=== PATIENT | male | born 1945 | race Caucasian/White ===

== ENCOUNTER 2017-10-06 14:40 | Emergency (ER) | payer MEDICARE, BC ==
[2017-10-06] MEDS ORDERED: Sodium Chloride 0.9% 10 ML Syringe FLUSH PRN (14:45)
[2017-10-06 14:47] VITALS: BP 118/68
--- NOTE | 2017-10-06 14:49 | EDM.PDOC ---
ED HPI GENERAL MEDICAL PROBLEM - General Chief Complaint: Chest Pain Stated Complaint: [id number] CHEST PAIN Time Seen by Provider: 10/06/17 14:42 Source of Information: Reports: Patient, RN, RN Notes Reviewed History Limitations: Reports: No Limitations - History of Present Illness INITIAL COMMENTS - FREE TEXT/NARRATIVE: Pt presents to ER with c/o chest pain. He states the pain began Wednesday or Wednesday. He states he was in [place] last week Wednesday for a check of his pacemaker. Patient admits to a dull ache in the left chest that radiates to the midsternal area. Rates the pain 3/10 when present, but 0/10 at this time. Patient denies fever, chills, SOB, N/V/D, cough, recent illness. Patient denies radiation of the pain to the left arm, jaw, neck, or back. Onset: Gradual Duration: Intermittent Location: Reports: Chest Quality: Reports: Ache, Dull Severity: Mild Improves with: Reports: None Worsens with: Reports: None Associated Symptoms: Reports: No Other Symptoms - Related Data Allergies Allergy/AdvReac Type Severity Reaction Status Date / Time aspirin Allergy Nose Bleeds Verified 03/27/15 07:02 atorvastatin calcium Allergy Abdominal Verified 03/27/15 07:02 [From Lipitor] Pain dabigatran etexilate mesylate Allergy Dizziness Verified 03/27/15 07:02 [From Pradaxa] ezetimibe [From Zetia] Allergy Cannot Verified 03/27/15 07:02 Remember rivaroxaban [From Xarelto] Allergy Dizziness Verified 03/27/15 07:02 rosuvastatin calcium Allergy Headache Verified 03/27/15 07:02 [From Crestor] simvastatin Allergy Stomach Verified 03/27/15 07:02 Ache Home Meds: Home Meds Digoxin 125 mcg PO ASDIRECTED 03/31/14 [History] Fenofibrate Nanocrystallized [Tricor] 145 mg PO DAILY 03/31/14 [History] Tamsulosin [Tamsulosin 24 Hr] 1 cap PO BID 03/31/14 [History] Zolpidem [Ambien] 1 tab PO BEDTIME 03/31/14 [History] Acetaminophen [Tylenol Extra Strength] 1 tab PO Q4H PRN 06/01/14 [History] Warfarin [Coumadin] 1 tab PO DAILY 07/24/14 [History] Lutein/Minerals/Vit A,C & E [I-Liana] 1 tab PO DAILY 02/25/15 [History] Metoprolol Succinate [Toprol XL] 0.5 tab PO DAILY 02/25/15 [History] Potassium Chloride [Klor-Con M20] 1 tab PO DAILY 02/25/15 [History] Sennosides/Docusate Sodium [Senna Plus Tablet] 1 tab PO BID 02/25/15 [History] Torsemide [Demadex] 1 tab PO DAILY 02/25/15 [History] Losartan [Cozaar] 0.5 tab PO DAILY 02/26/15 [History] Past Medical History HEENT History: Reports: Cataract, Otitis Media Cardiovascular History: Reports: Afib, High Cholesterol, Hypertension, Other ( See Below) Other Cardiovascular History: DILATED CARDIOMYOPATHY, NON-ISCHEMIA, POSSIBLE TACHYCARDIA-INDUCED EF 19% 10/2014; MITRAL & TRICUSPID INSUFFICIENCY; CHRONIC ANTICOAGULATION THERAPY Respiratory History: Reports: Sleep Apnea Genitourinary History: Reports: Prostate Disorder Other Genitourinary History: CKD Neurological History: Reports: Vertigo Oncologic (Cancer) History: Reports: Non-Hodgkin's Lymphoma Other Dermatologic History: KERATOSIS ACTINIC LEFT BAHAI - Past Surgical History HEENT Surgical History: Reports: Myringotomy w Tube(s) Musculoskeletal Surgical History: Reports: Shoulder Surgery Social & Family History - Living Situation & Occupation Living situation: Reports: , with Spouse Occupation: Retired ED ROS GENERAL - Review of Systems Review Of Systems: ROS reveals no pertinent complaints other than HPI. ED EXAM, GENERAL - Physical Exam Exam: See Below Exam Limited By: No Limitations General Appearance: Alert, WD/WN, No Apparent Distress Eye Exam: Bilateral Eye: EOMI, Normal Inspection Ears: Normal External Exam, Hearing Grossly Normal Nose: Normal Inspection Throat/Mouth: Normal Inspection, Normal Voice, No Airway Compromise Head: Atraumatic, Normocephalic Neck: Normal Inspection, Supple, Non-Tender, Full Range of Motion Respiratory/Chest: No Respiratory Distress, No Accessory Muscle Use, Chest Non- Tender, Decreased Breath Sounds Cardiovascular: Normal Peripheral Pulses, Regular Rate, Rhythm, No Edema, No Gallop, No JVD, No Murmur, No Rub Peripheral Pulses: 2+: Radial (L), Radial (R) GI/Abdominal: Normal Bowel Sounds, Soft, Non-Tender (Male) Exam: Deferred Rectal (Males) Exam: Deferred Back Exam: Normal Inspection, Full Range of Motion Extremities: Normal Inspection, Normal Range of Motion, Non-Tender, No Pedal Edema, Normal Capillary Refill Neurological: Alert, Oriented, CN II-XII Intact, Normal Cognition, Normal Gait, Normal Reflexes, No Motor/Sensory Deficits Psychiatric: Normal Affect, Normal Mood Skin Exam: Warm, Dry, Intact, Normal Color, No Rash Lymphatic: No Adenopathy EKG INTERPRETATION EKG Date: 10/06/17 Time: 14:49 Rhythm: Other (V paced) Rate (Beats/Min): 60 Comparison: Change From Previous EKG Course - Vital Signs Last Recorded V/S: Last Vital Signs Temp 98.3 F 10/06/17 14:42 Pulse 65 10/06/17 14:42 Resp 18 10/06/17 14:42 BP 118/68 10/06/17 14:42 Pulse Ox 95 10/06/17 14:42 - Orders/Labs/Meds Orders: Active Orders 24 hr Category Date Time Status EKG Documentation Completion [RC] STAT Care 10/06/17 14:45 Active Peripheral IV Care [RC] . DIRECTED Care 10/06/17 14:45 Active UA W/MICROSCOPIC [URIN] Stat Lab 10/06/17 15:36 Ordered Sodium Chloride 0.9% [Saline Flush] Med 10/06/17 14:45 Active 10 ml FLUSH ASDIRECTED PRN Peripheral IV Insertion Adult [OM.PC] Stat Oth 10/06/17 14:45 Ordered Medication Orders Sodium Chloride (Saline Flush) 10 ml FLUSH ASDIRECTED PRN PRN Reason: Keep Vein Open Last Admin: 10/06/17 14:57 Dose: 10 ml Labs: Laboratory Tests 10/06/17 10/06/17 10/06/17 Range/Units 14:55 14:55 15:36 WBC 10.0 (5.0-10.0) 10^3/uL RBC 4.49 L (4.6-6.2) 10^6/uL Hgb 13.8 L (14.0-18.0) g/dL Hct 39.2 L (40.0-54.0) % MCV 87.3 (80-100) fL MCH 30.7 (27.0-34.0) pg MCHC 35.2 H (33.0-35.0) g/dL Plt Count 245 (150-450) 10^3/uL Neut % (Auto) 72.6 (42.2-75.2) % Lymph % (Auto) 16.1 L (20.5-50.1) % [place] % (Auto) 7.6 (2-8) % Eos % (Auto) 3.1 H (1.0-3.0) % Baso % (Auto) 0.6 (0.0-1.0) % Sodium 135 (135-145) mmol/L Potassium 3.8 (3.6-5.0) mmol/L Chloride 101 (101-111) mmol/L Carbon Dioxide 25.0 (21.0-31.0) mmol/L Anion Gap 12.8 BUN 20 H (7-18) mg/dL Creatinine 1.5 H (0.6-1.3) mg/dL Est Cr Clr Drug Dosing 48.14 mL/min Estimated GFR (MDRD) 46 BUN/Creatinine Ratio 13.33 Glucose 175 H (74-105) mg/dL Calcium 9.2 (8.4-10.2) mg/dl Total Bilirubin 1.0 (0.2-1.0) mg/dL AST 28 (10-42) IU/L ALT 28 (10-60) IU/L Alkaline Phosphatase 28 L (42-121) IU/L Troponin I < 0.02 (0.00-0.02) ng/ml B-Natriuretic Peptide 22 (0-100) pg/ml Total Protein 7.3 (6.7-8.2) g/dl Albumin 4.2 (3.2-5.5) g/dl Globulin 3.1 Albumin/Globulin Ratio 1.35 Urine Color Yellow (YELLOW) Urine Appearance Slightly cloudy (CLEAR) Urine pH 6.5 (5.0-9.0) Ur Specific [place] 1.015 (1.005-1.030) Urine Protein Negative (NEGATIVE) Urine Glucose (UA) Negative (NEGATIVE) Urine Ketones Negative (NEGATIVE) Urine Occult Blood Negative (NEGATIVE) Urine Nitrite Negative (NEGATIVE) Urine Bilirubin Negative (NEGATIVE) Urine Urobilinogen 0.2 (0.2-1.0) mg/dL Ur Leukocyte Esterase Negative (NEGATIVE) Urine RBC 0-5 /HPF Urine WBC 0-5 (0-5/HPF) /HPF Ur Epithelial Cells Rare /HPF Amorphous Sediment Few (0/HPF) /HPF Urine Bacteria Rare (0-FEW/HPF) /HPF Urine Mucus Rare /LPF Meds: Medications Generic Name Dose Route Start Last Admin Trade Name Freq PRN Reason Stop Dose Admin Sodium Chloride 10 ml 10/06/17 14:45 10/06/17 14:57 Saline Flush FLUSH 10 ml ASDIRECTED PRN Administration Keep Vein Open - Radiology Interpretation Free Text/Narrative:: Chest xray (portable): The heart demonstrates mild diffuse enlargement Atelectatic and/or fibrotic changes and within both lung bases. See rad report Departure - Departure Time of Disposition: 16:04 Disposition: Home, Self-Care 01 Condition: Fair Clinical Impression: Atypical chest pain, Chest wall pain Instructions: Chest Wall Pain, [id number], Nonspecific Chest Pain, Easy-to- Read Forms: ED Department Discharge Additional Instructions: Follow up with your primary care facility - My Orders Last 24 Hours: My Active Orders 10/06/17 14:45 EKG Documentation Completion [RC] STAT Peripheral IV Care [RC] . DIRECTED Sodium Chloride 0.9% [Saline Flush] 10 ml FLUSH ASDIRECTED PRN Peripheral IV Insertion Adult [OM.PC] Stat 10/06/17 15:36 UA W/MICROSCOPIC [URIN] Stat - Assessment/Plan Last 24 Hours: My Active Orders 10/06/17 14:45 EKG Documentation Completion [RC] STAT Peripheral IV Care [RC] . DIRECTED Sodium Chloride 0.9% [Saline Flush] 10 ml FLUSH ASDIRECTED PRN Peripheral IV Insertion Adult [OM.PC] Stat 10/06/17 15:36 UA W/MICROSCOPIC [URIN] Stat
[2017-10-06 15:20] LABS: CHLORIDE,CL 101 mmol/L (101-111); SODIUM,NA 135 mmol/L (135-145)
--- NOTE | 2017-10-07 13:39 | EKG ---
10/06/2017 - PAULA DIAZ - TIME: 1449 hours. FINDINGS: EKG shows a ventricular paced rhythm. [facility] /[id number]
== END 2017-10-06 16:10 | disposition home or self-care (01) ==
LOC: DL.ED 14:40
DX: R07.89 Other chest pain (principal); E78.00 Pure hypercholesterolemia, unspecified; I10 Essential (primary) hypertension; Z88.6 Allergy status to analgesic agent; Z88.8 Allergy status to other drugs, medicaments and biological substances; Z79.899 Other long term (current) drug therapy; Z79.01 Long term (current) use of anticoagulants
CPT/HCPCS: 36415; 71045; 80053; 81001; 83880; 84484; 85025; 93005; 93010; 99285; J7050

== ENCOUNTER 2023-11-22 10:21 | Emergency (ER) | payer MEDICARE, BC ==
[2023-11-22 10:35] VITALS: BP 136/76; PULSE 71
[2023-11-22] MEDS: Sodium Chloride 0.9% 1,000 ML IV ONE (11:14)
[2023-11-22] MEDS: Sodium Chloride 0.9% 10 ML Syringe FLUSH PRN (11:15)
[2023-11-22 11:18] LABS: HEMATOCRIT 32.2 % (40.0-54.0); MEAN CORPUSCULAR HEMOGLOBIN 31.1 pg (27.0-34.0); MEAN CORPUSCULAR HGB CONC 34.2 g/dL (33.0-35.0); PLATELET COUNT,PLT 130 10^3/uL (150-450); RED BLOOD CELL COUNT 3.54 10^6/uL (4.6-6.2); WHITE BLOOD CELL COUNT,WBC 7.1 10^3/uL (5.0-10.0)
[2023-11-22 11:25] LABS: BASOPHILS PERCENT AUTO 0.6 % (0.0-1.0); EOSINOPHILS PERCENT AUTO 1.4 % (1.0-3.0); LYMPHOCYTES PERCENT AUTO 11.1 % (20.5-50.1); MONOCYTES PERCENT AUTO 18.6 % (2-8); NEUTROPHILS PERCENT AUTO 68.3 % (42.2-75.2)
[2023-11-22 11:34] LABS: APPEARANCE,URINE CLEAR (CLEAR); BILIRUBIN,URINE NEGATIVE (NEGATIVE); COLOR,URINE YELLOW (YELLOW); GLUCOSE,URINE NEGATIVE (NEGATIVE); KETONES,URINE NEGATIVE (NEGATIVE); LEUKOCYTE ESTERASE,URINE NEGATIVE (NEGATIVE); NITRITE,URINE NEGATIVE (NEGATIVE); OCCULT BLOOD,URINE NEGATIVE (NEGATIVE); PROTEIN,URINE NEGATIVE (NEGATIVE); UROBILINOGEN,URINE 0.2 mg/dL (0.2-1.0)
[2023-11-22 11:41] LABS: A/G RATIO 1.3; ALBUMIN 3.4 g/dL (3.4-5.0); ANION GAP 14.1 mEq/L (7-13); BILIRUBIN TOTAL 0.5 mg/dL (0.2-1.0); CALCIUM 8.6 mg/dL (8.5-10.1); CREATININE 1.55 mg/dL (0.70-1.30); EST CRCL DRUG DOSING (CG) 42.42 mL/min; LACTIC ACID 1.4 mmol/L (0.4-2.0); MAGNESIUM 1.8 mg/dL (1.8-2.4); POTASSIUM,K 4.1 mmol/L (3.5-5.1); PROTEIN TOTAL,TP 6.1 g/dL (6.4-8.2)
[2023-11-22 11:43] LABS: PROTHROMBIN TIME 19.4 SEC (9.0-12.0)
[2023-11-22 11:46] LABS: BAND PERCENT MAN 2 %; LYMPHOCYTES PERCENT MAN 13 % (20-50); MONOCYTES PERCENT MAN 25 % (2-8); SEG NEUTROPHILS PERCENT MAN 60 % (42-75)
== END 2023-11-22 13:50 | disposition home or self-care (01) ==
LOC: DL.ED 10:21
DX: J06.9 Acute upper respiratory infection, unspecified (principal); B97.89 Other viral agents as the cause of diseases classified elsewhere; I10 Essential (primary) hypertension; Z90.49 Acquired absence of other specified parts of digestive tract; Z79.899 Other long term (current) drug therapy; Z88.8 Allergy status to other drugs, medicaments and biological substances
CPT/HCPCS: 36415; 80053; 81003; 83605; 83735; 84484; 85025; 85610; 85730; 87804; 93005; 96360; 99285-25; J3490; J7030; U0002

== ENCOUNTER 2024-01-11 04:07 | Inpatient (IN) | payer MEDICARE, BC ==
[2024-01-11 04:50] LABS: HEMATOCRIT 26.1 % (40.0-54.0); HEMOGLOBIN 8.4 g/dL (14.0-18.0); MEAN CORPUSCULAR HEMOGLOBIN 30.1 pg (27.0-34.0); MEAN CORPUSCULAR HGB CONC 32.2 g/dL (33.0-35.0); MEAN CORPUSCULAR VOLUME 93.5 fL (80-100); PLATELET COUNT,PLT 314 10^3/uL (150-450); RED BLOOD CELL COUNT 2.79 10^6/uL (4.6-6.2); WHITE BLOOD CELL COUNT,WBC 23.4 10^3/uL (5.0-10.0)
[2024-01-11] MEDS: Sodium Chloride 0.9% 1,000 ML IV ONE ×2 (05:04→05:50)
[2024-01-11 05:07] LABS: BASOPHILS PERCENT AUTO 0.3 % (0.0-1.0); EOSINOPHILS PERCENT AUTO 0.1 % (1.0-3.0); MONOCYTES PERCENT AUTO 3.8 % (2-8); NEUTROPHILS PERCENT AUTO 94.8 % (42.2-75.2)
[2024-01-11 05:08] LABS: B-TYPE NATRIURETIC PEPTIDE,BNP 50 pg/ml (0-100)
[2024-01-11 05:10] LABS: ALANINE AMINOTRANSFERASE,ALT 16 U/L (16-63); ALBUMIN 2.9 g/dL (3.4-5.0); ALKALINE PHOSPHATASE 44 U/L (46-116); ANION GAP 15.2 mEq/L (7-13); ASPARTATE AMNIOTRANSFERASE,AST 14 U/L (15-37); BILIRUBIN TOTAL 0.6 mg/dL (0.2-1.0); BLOOD UREA NITROGEN,BUN 19 mg/dL (7-18); BUN/CREATININE RATIO 11.4 (No establ ref range); C-REACTIVE PROTEIN 3.55 ng/dL (<=0.50); CALCIUM 8.8 mg/dL (8.5-10.1); CARBON DIOXIDE,CO2 22 mmol/L (21-32); CHLORIDE,CL 102 mmol/L (98-107); CREATININE 1.67 mg/dL (0.70-1.30); GLUCOSE RANDOM 262 mg/dL (70-99); MAGNESIUM 1.6 mg/dL (1.8-2.4); POTASSIUM,K 4.2 mmol/L (3.5-5.1); SODIUM,NA 135 mmol/L (136-145)
[2024-01-11 05:14] LABS: A/G RATIO 0.94; ESTIMATED GFR 41 mL/min (>=60)
[2024-01-11 05:15] LABS: LACTIC ACID 3.4 mmol/L (0.4-2.0)
[2024-01-11 05:21] LABS: BAND PERCENT MAN 3 %; LYMPHOCYTES PERCENT MAN 1 % (20-50); MONOCYTES PERCENT MAN 6 % (2-8); SEG NEUTROPHILS PERCENT MAN 90 % (42-75)
[2024-01-11 05:27] LABS: INR 2.3 (0.9-1.2); PROTHROMBIN TIME 22.3 SEC (9.0-12.0); PTT,PARTIAL THROMBOPLSTIN TIME 28.4 SEC (22.0-34.0)
[2024-01-11 05:42] LABS: APPEARANCE,URINE CLEAR (CLEAR); BILIRUBIN,URINE NEGATIVE (NEGATIVE); COLOR,URINE YELLOW (YELLOW); GLUCOSE,URINE 100 (NEGATIVE); KETONES,URINE NEGATIVE (NEGATIVE); LEUKOCYTE ESTERASE,URINE NEGATIVE (NEGATIVE); NITRITE,URINE NEGATIVE (NEGATIVE); OCCULT BLOOD,URINE NEGATIVE (NEGATIVE); PH,URINE 5.5 (5.0-9.0); PROTEIN,URINE NEGATIVE (NEGATIVE); UROBILINOGEN,URINE 0.2 mg/dL (0.2-1.0)
[2024-01-11] MEDS: Piperacillin/Tazobactam 3.375 GM in Sodium Chloride 0.9% 100 ML IV ONE (05:49)
[2024-01-11] MEDS: Magnesium Sulfate/Water Premix 2 GM in Premix Bag 1 BAG IV ONE (06:19)
[2024-01-11] MEDS ORDERED: Acetaminophen/HYDROcodone 325-5 MG Tab PO PRN (06:42)
[2024-01-11] MEDS ORDERED: Ondansetron 4 MG/2 ML SDV IVPUSH PRN (06:44)
[2024-01-11] MEDS ORDERED: Melatonin 3 MG Tab PO PRN (06:44)
[2024-01-11] MEDS ORDERED: Albuterol/Ipratropium 3.0-0.5 MG/3 ML Neb Soln NEB PRN (06:44)
[2024-01-11] MEDS ORDERED: Polyethylene Glycol 3350 Powder 17 GM Packet PO PRN (06:44)
[2024-01-11] MEDS ORDERED: Sennosides/Docusate Sodium 50-8.6 MG Tab PO PRN (06:44)
[2024-01-11] MEDS ORDERED: 50% Dextrose in Water 50 ML Syringe IVPUSH PRN (07:23)
[2024-01-11] MEDS ORDERED: Glucagon,Human Recombinant 1 MG Vial IM PRN (07:23)
[2024-01-11] MEDS ORDERED: Sodium Chloride 0.9% 1,000 ML IV SCH (07:45)
[2024-01-11] MEDS ORDERED: Sodium Chloride 0.9% 100 ML IV PRN (08:12)
[2024-01-11] MEDS ORDERED: Warfarin 5 MG Tab PO ONE (09:45)
[2024-01-11] MEDS: Insulin Lispro 100 Units/ML 3 ML Vial SUBCUT SCH (10:32)
[2024-01-11] MEDS: guaiFENesin 600 MG Tab.ER PO SCH (10:33)
[2024-01-11] MEDS: Vancomycin 2 GM in Sodium Chloride 0.9% 500 ML IV ONE (10:33)
[2024-01-11] MEDS: Water For Injection, Sterile 40 ML ONE (10:34)
[2024-01-11] MEDS ORDERED: Warfarin 5 MG Tab PO SCH (12:00)
[2024-01-11] MEDS ORDERED: Digoxin 125 MCG Tab PO SCH (12:15)
[2024-01-11] MEDS: Hydrocortisone Sodium Succinate 100 MG/2 ML SDV IVPUSH SCH (12:24)
[2024-01-11 13:37] LABS: INR 2.7 (0.9-1.2); PROTHROMBIN TIME 26.2 SEC (9.0-12.0)
[2024-01-11 13:38] LABS: LACTIC ACID 2.2 mmol/L (0.4-2.0)
[2024-01-11] MEDS: Acetaminophen 325 MG Tab PO PRN (14:42)
[2024-01-11] MEDS: Sodium Chloride 0.9% 1,000 ML IV SCH (16:45)
[2024-01-11] MEDS: Cefepime 2 GM Vial IVPUSH SCH (17:53)
[2024-01-11] MEDS: Warfarin 5 MG Tab PO ONE (20:41)
[2024-01-11] MEDS: Tamsulosin 0.4 MG Cap.ER PO SCH (20:42)
[2024-01-11] MEDS: Sennosides/Docusate Sodium 50-8.6 MG Tab PO SCH (20:43)
[2024-01-11] MEDS: Zolpidem 5 MG Tab PO PRN (20:44)
[2024-01-12] MEDS: Magnesium Hydroxide 400 MG/5 ML Susp 30 ML Cup PO PRN (04:00)
[2024-01-12] MEDS: Pantoprazole 40 MG Tab.CR PO SCH (05:15)
[2024-01-12] MEDS ORDERED: Glimepiride 2 MG Tab PO SCH (06:00)
[2024-01-12 06:51] LABS: HEMATOCRIT 23.8 % (40.0-54.0); HEMOGLOBIN 7.6 g/dL (14.0-18.0); MEAN CORPUSCULAR HEMOGLOBIN 29.8 pg (27.0-34.0); MEAN CORPUSCULAR HGB CONC 31.9 g/dL (33.0-35.0); MEAN CORPUSCULAR VOLUME 93.3 fL (80-100); PLATELET COUNT,PLT 312 10^3/uL (150-450); RED BLOOD CELL COUNT 2.55 10^6/uL (4.6-6.2); WHITE BLOOD CELL COUNT,WBC 18.3 10^3/uL (5.0-10.0)
[2024-01-12 07:07] LABS: INR 2.4 (0.9-1.2); PROTHROMBIN TIME 23.2 SEC (9.0-12.0)
[2024-01-12 07:12] LABS: BASOPHILS PERCENT AUTO 0.3 % (0.0-1.0); MONOCYTES PERCENT AUTO 1.6 % (2-8); NEUTROPHILS PERCENT AUTO 96.1 % (42.2-75.2)
[2024-01-12 07:33] LABS: LYMPHOCYTES PERCENT MAN 1 % (20-50); MONOCYTES PERCENT MAN 4 % (2-8); SEG NEUTROPHILS PERCENT MAN 95 % (42-75)
[2024-01-12 08:07] LABS: ALBUMIN 2.6 g/dL (3.4-5.0); ANION GAP 14.2 mEq/L (7-13); BILIRUBIN TOTAL 0.6 mg/dL (0.2-1.0); BUN/CREATININE RATIO 14.4 (No establ ref range); C-REACTIVE PROTEIN 9.17 ng/dL (<=0.50); CALCIUM 8.7 mg/dL (8.5-10.1); CREATININE 1.25 mg/dL (0.70-1.30); EST CRCL DRUG DOSING (CG) 50.2 mL/min; MAGNESIUM 2.2 mg/dL (1.8-2.4); POTASSIUM,K 4.2 mmol/L (3.5-5.1); PROTEIN TOTAL,TP 5.8 g/dL (6.4-8.2)
[2024-01-12 08:13] LABS: A/G RATIO 0.81
[2024-01-12] MEDS ORDERED: Losartan 25 MG Tab PO SCH (09:00)
[2024-01-12] MEDS: Metoprolol Succinate 25 MG Tab.ER PO SCH (10:32)
[2024-01-12] MEDS: Allopurinol 100 MG Tab PO SCH (10:32)
[2024-01-12] MEDS: Fenofibrate Nanocrystallized 145 MG Tab PO SCH (10:33)
[2024-01-12] MEDS: Finasteride 5 MG Tab PO SCH (10:33)
[2024-01-12] MEDS: Lutein/Minerals/Vit A,C & E Tab PO SCH (10:33)
[2024-01-12] MEDS: Glimepiride 2 MG Tab PO SCH (10:34)
[2024-01-12] MEDS: Warfarin 5 MG Tab PO ONE (21:39)
[2024-01-13 06:08] LABS: HEMATOCRIT 24.3 % (40.0-54.0); HEMOGLOBIN 7.8 g/dL (14.0-18.0); MEAN CORPUSCULAR HGB CONC 32.1 g/dL (33.0-35.0); MEAN CORPUSCULAR VOLUME 93.5 fL (80-100); PLATELET COUNT,PLT 339 10^3/uL (150-450); WHITE BLOOD CELL COUNT,WBC 19.7 10^3/uL (5.0-10.0)
[2024-01-13 06:17] LABS: BASOPHILS PERCENT AUTO 0.2 % (0.0-1.0); LYMPHOCYTES PERCENT AUTO 1.9 % (20.5-50.1); MONOCYTES PERCENT AUTO 3.8 % (2-8); NEUTROPHILS PERCENT AUTO 94.1 % (42.2-75.2)
[2024-01-13 06:32] LABS: LYMPHOCYTES PERCENT MAN 2 % (20-50); MONOCYTES PERCENT MAN 2 % (2-8); SEG NEUTROPHILS PERCENT MAN 96 % (42-75)
[2024-01-13 08:06] LABS: A/G RATIO 0.81; ALBUMIN 2.6 g/dL (3.4-5.0); BILIRUBIN TOTAL 0.4 mg/dL (0.2-1.0); C-REACTIVE PROTEIN 4.03 ng/dL (<=0.50); CALCIUM 8.7 mg/dL (8.5-10.1); CREATININE 1.25 mg/dL (0.70-1.30); EST CRCL DRUG DOSING (CG) 50.2 mL/min; MAGNESIUM 2.3 mg/dL (1.8-2.4); PROTEIN TOTAL,TP 5.8 g/dL (6.4-8.2)
[2024-01-13 11:45] VITALS: BP 152/77; PULSE 78
[2024-01-13] MEDS: VANCOmycin 1.5 GM/300 ML 300 ML IV SCH (11:54)
[2024-01-13] MEDS ORDERED: Warfarin 5 MG Tab PO ONE (21:00)
== END 2024-01-13 14:20 | disposition home or self-care (01) | DRG 871 ==
LOC: DL.ED 04:07 → DL.MS 05:54
PROVIDERS: ADMIT Internal Medicine; ATTEND Internal Medicine
DX: A41.9 Sepsis, unspecified organism (principal); J18.9 Pneumonia, unspecified organism; I10 Essential (primary) hypertension; Z88.6 Allergy status to analgesic agent; C85.90 Non-Hodgkin lymphoma, unspecified, unspecified site; I48.20 Chronic atrial fibrillation, unspecified; I42.0 Dilated cardiomyopathy; E87.1 Hypo-osmolality and hyponatremia; N17.9 Acute kidney failure, unspecified; E87.20 Acidosis, unspecified; Z66 Do not resuscitate; I50.9 Heart failure, unspecified; E78.00 Pure hypercholesterolemia, unspecified; G47.30 Sleep apnea, unspecified; E83.42 Hypomagnesemia; D64.9 Anemia, unspecified; R73.9 Hyperglycemia, unspecified; E88.09 Other disorders of plasma-protein metabolism, not elsewhere classified; E86.0 Dehydration; Z88.8 Allergy status to other drugs, medicaments and biological substances; Z95.0 Presence of cardiac pacemaker; Z79.899 Other long term (current) drug therapy; Z79.01 Long term (current) use of anticoagulants; Z90.49 Acquired absence of other specified parts of digestive tract; Z98.890 Other specified postprocedural states
CPT/HCPCS: 36415; 71045; 76770; 80053; 80162; 80202; 81003; 82533; 82947; 83605; 83735; 83880; 84145; 85025; 85610; 85730; 86140; 87040; 87804; 97161-GP; 97165-GO; 99233; 99239; A9270-GY; J0692; J1720; J1815-GY; J2543; J3370; J3372; J3475; J3490; J7030; J7040; J7050; U0002

== ENCOUNTER 2024-02-27 10:21 | Inpatient (IN) | payer MEDICARE, BC ==
[2024-02-27 10:59] LABS: APPEARANCE,URINE CLEAR (CLEAR); BILIRUBIN,URINE NEGATIVE (NEGATIVE); COLOR,URINE YELLOW (YELLOW); GLUCOSE,URINE 250 (NEGATIVE); KETONES,URINE NEGATIVE (NEGATIVE); LEUKOCYTE ESTERASE,URINE NEGATIVE (NEGATIVE); NITRITE,URINE NEGATIVE (NEGATIVE); OCCULT BLOOD,URINE NEGATIVE (NEGATIVE); PH,URINE 5.5 (5.0-9.0); PROTEIN,URINE NEGATIVE (NEGATIVE); UROBILINOGEN,URINE 0.2 mg/dL (0.2-1.0)
[2024-02-27 11:38] LABS: BASOPHILS PERCENT AUTO 0.2 % (0.0-1.0); EOSINOPHILS PERCENT AUTO 0.2 % (1.0-3.0); HEMATOCRIT 28.4 % (40.0-54.0); HEMOGLOBIN 9.1 g/dL (14.0-18.0); LYMPHOCYTES PERCENT AUTO 5.8 % (20.5-50.1); MEAN CORPUSCULAR HEMOGLOBIN 29.6 pg (27.0-34.0); MEAN CORPUSCULAR VOLUME 92.5 fL (80-100); MONOCYTES PERCENT AUTO 5.9 % (2-8); NEUTROPHILS PERCENT AUTO 87.9 % (42.2-75.2); PLATELET COUNT,PLT 230 10^3/uL (150-450); RED BLOOD CELL COUNT 3.07 10^6/uL (4.6-6.2); WHITE BLOOD CELL COUNT,WBC 18.9 10^3/uL (5.0-10.0)
[2024-02-27 11:58] LABS: INR 3.1 (0.9-1.2); PROTHROMBIN TIME 30.3 SEC (9.0-12.0)
[2024-02-27] MEDS: cefTRIAXone 2 GM Vial IVPUSH ONE (12:00)
[2024-02-27] MEDS: Azithromycin 500 MG in Sodium Chloride 0.9% 250 ML IV ONE (12:00)
[2024-02-27 12:02] LABS: A/G RATIO 1.11; ALBUMIN 3.1 g/dL (3.4-5.0); ANION GAP 13.1 mEq/L (7-13); BILIRUBIN TOTAL 0.7 mg/dL (0.2-1.0); BUN/CREATININE RATIO 9.6 (No establ ref range); CALCIUM 9.1 mg/dL (8.5-10.1); CREATININE 1.56 mg/dL (0.70-1.30); EST CRCL DRUG DOSING (CG) 41.45 mL/min; MAGNESIUM 1.8 mg/dL (1.8-2.4); POTASSIUM,K 4.1 mmol/L (3.5-5.1); PROTEIN TOTAL,TP 5.9 g/dL (6.4-8.2)
[2024-02-27] MEDS: Sodium Chloride 0.9% 10 ML Syringe FLUSH PRN (12:02)
[2024-02-27 12:05] LABS: LACTIC ACID 3.1 mmol/L (0.4-2.0)
[2024-02-27 12:12] LABS: C-REACTIVE PROTEIN 3.51 ng/dL (<=0.50)
[2024-02-27 12:15] LABS: PTT,PARTIAL THROMBOPLSTIN TIME 31.2 SEC (22.0-34.0)
[2024-02-27] MEDS ORDERED: Melatonin 3 MG Tab PO PRN (13:30)
[2024-02-27] MEDS ORDERED: Polyethylene Glycol 3350 Powder 17 GM Packet PO PRN (13:30)
[2024-02-27] MEDS ORDERED: Ondansetron 4 MG/2 ML SDV IVPUSH PRN (13:30)
[2024-02-27] MEDS ORDERED: Docusate Sodium 100 MG Cap PO PRN (13:30)
[2024-02-27] MEDS: Sodium Chloride 0.9% 1,000 ML IV ONE (14:20)
[2024-02-27] MEDS: Sodium Chloride 0.9% 500 ML IV ONE (14:23)
[2024-02-27] MEDS: VANCOmycin 2 GM in Sodium Chloride 0.9% 500 ML IV ONE (15:05)
[2024-02-27] MEDS ORDERED: 50% Dextrose in Water 50 ML Syringe IVPUSH PRN (15:08)
[2024-02-27] MEDS ORDERED: Glucagon,Human Recombinant 1 MG Vial IM PRN (15:08)
[2024-02-27] MEDS: Water For Injection, Sterile 10 ML ONE (16:24)
[2024-02-27] MEDS: VANCOmycin 1 GM SDV ONE (16:25)
[2024-02-27] MEDS: Sodium Chloride 0.9% 1,000 ML IV SCH (16:29)
[2024-02-27] MEDS: Warfarin 2.5 MG Tab PO ONE (16:29)
[2024-02-27] MEDS: Insulin Lispro 100 Units/ML 3 ML Vial SUBCUT SCH (18:28)
[2024-02-27] MEDS: Zolpidem 5 MG Tab PO SCH (20:22)
[2024-02-27] MEDS: Tamsulosin 0.4 MG Cap.ER PO SCH (20:23)
[2024-02-27] MEDS: Sennosides/Docusate Sodium 50-8.6 MG Tab PO SCH (20:23)
[2024-02-28 06:30] LABS: BASOPHILS PERCENT AUTO 0.6 % (0.0-1.0); EOSINOPHILS PERCENT AUTO 3.6 % (1.0-3.0); HEMATOCRIT 26.6 % (40.0-54.0); HEMOGLOBIN 8.4 g/dL (14.0-18.0); LYMPHOCYTES PERCENT AUTO 12.7 % (20.5-50.1); MEAN CORPUSCULAR HEMOGLOBIN 29.7 pg (27.0-34.0); MEAN CORPUSCULAR HGB CONC 31.6 g/dL (33.0-35.0); MONOCYTES PERCENT AUTO 10.5 % (2-8); NEUTROPHILS PERCENT AUTO 72.6 % (42.2-75.2); PLATELET COUNT,PLT 197 10^3/uL (150-450); RED BLOOD CELL COUNT 2.83 10^6/uL (4.6-6.2); WHITE BLOOD CELL COUNT,WBC 9.9 10^3/uL (5.0-10.0)
[2024-02-28 06:47] LABS: INR 2.5 (0.9-1.2); PTT,PARTIAL THROMBOPLSTIN TIME 35.1 SEC (22.0-34.0)
[2024-02-28 07:18] LABS: A/G RATIO 1.04; ALBUMIN 2.8 g/dL (3.4-5.0); ANION GAP 13.6 mEq/L (7-13); BILIRUBIN TOTAL 0.5 mg/dL (0.2-1.0); BUN/CREATININE RATIO 9.4 (No establ ref range); CALCIUM 8.9 mg/dL (8.5-10.1); CREATININE 1.27 mg/dL (0.70-1.30); EST CRCL DRUG DOSING (CG) 50.92 mL/min; MAGNESIUM 1.9 mg/dL (1.8-2.4); POTASSIUM,K 3.6 mmol/L (3.5-5.1); PROTEIN TOTAL,TP 5.5 g/dL (6.4-8.2)
[2024-02-28] MEDS: Losartan 25 MG Tab PO SCH (08:15)
[2024-02-28] MEDS: Pantoprazole 40 MG Vial IVPUSH SCH (08:15)
[2024-02-28] MEDS: Torsemide 20 MG Tab PO SCH (08:15)
[2024-02-28] MEDS: Lutein/Minerals/Vit A,C & E Tab PO SCH (08:15)
[2024-02-28] MEDS: Metoprolol Succinate 25 MG Tab.ER PO SCH (08:15)
[2024-02-28] MEDS: Digoxin 125 MCG Tab PO SCH (08:16)
[2024-02-28] MEDS: Potassium Chloride 10 MEQ Tab.ER PO SCH (08:16)
[2024-02-28] MEDS: Fenofibrate Nanocrystallized 145 MG Tab PO SCH (08:16)
[2024-02-28] MEDS: Allopurinol 100 MG Tab PO SCH (08:17)
[2024-02-28] MEDS: cefTRIAXone 1 GM Vial IVPUSH SCH (13:06)
[2024-02-28] MEDS: Azithromycin 500 MG in Sodium Chloride 0.9% 250 ML IV SCH (13:06)
[2024-02-28] MEDS ORDERED: VANCOmycin 1.5 GM/300 ML 300 ML IV SCH (15:00)
[2024-02-28] MEDS: Acetaminophen 325 MG Tab PO PRN (20:21)
[2024-02-28] MEDS: Warfarin 5 MG Tab PO ONE (20:21)
[2024-02-29 07:20] LABS: BASOPHILS PERCENT AUTO 0.7 % (0.0-1.0); EOSINOPHILS PERCENT AUTO 7.6 % (1.0-3.0); HEMATOCRIT 28.2 % (40.0-54.0); HEMOGLOBIN 9.1 g/dL (14.0-18.0); LYMPHOCYTES PERCENT AUTO 15.9 % (20.5-50.1); MEAN CORPUSCULAR HEMOGLOBIN 29.9 pg (27.0-34.0); MEAN CORPUSCULAR HGB CONC 32.3 g/dL (33.0-35.0); MEAN CORPUSCULAR VOLUME 92.8 fL (80-100); MONOCYTES PERCENT AUTO 8.8 % (2-8); PLATELET COUNT,PLT 206 10^3/uL (150-450); RED BLOOD CELL COUNT 3.04 10^6/uL (4.6-6.2); WHITE BLOOD CELL COUNT,WBC 8.4 10^3/uL (5.0-10.0)
[2024-02-29 07:25] VITALS: BP 151/65; PULSE 62
[2024-02-29 07:30] LABS: LACTIC ACID 1.4 mmol/L (0.4-2.0)
[2024-02-29 07:38] LABS: ALBUMIN 2.9 g/dL (3.4-5.0); ANION GAP 14.7 mEq/L (7-13); BILIRUBIN TOTAL 0.5 mg/dL (0.2-1.0); BUN/CREATININE RATIO 10.5 (No establ ref range); C-REACTIVE PROTEIN 4.36 ng/dL (<=0.50); CALCIUM 9.2 mg/dL (8.5-10.1); CREATININE 1.24 mg/dL (0.70-1.30); EST CRCL DRUG DOSING (CG) 52.15 mL/min; POTASSIUM,K 3.7 mmol/L (3.5-5.1); PROTEIN TOTAL,TP 5.8 g/dL (6.4-8.2)
[2024-02-29] MEDS: Digoxin 125 MCG Tab PO SCH (08:25)
[2024-02-29 09:41] LABS: PROTHROMBIN TIME 19.8 SEC (9.0-12.0)
[2024-02-29] MEDS ORDERED: Warfarin 5 MG Tab PO ONE (21:00)
== END 2024-02-29 10:35 | disposition home or self-care (01) | DRG 871 ==
LOC: DL.ED 10:21 → DL.MS 12:02
PROVIDERS: ADMIT Internal Medicine; ATTEND Internal Medicine
DX: A41.9 Sepsis, unspecified organism (principal); J18.9 Pneumonia, unspecified organism; C85.9A Non-Hodgkin lymphoma, unspecified, in remission; E87.1 Hypo-osmolality and hyponatremia; I42.9 Cardiomyopathy, unspecified; Z88.6 Allergy status to analgesic agent; E87.20 Acidosis, unspecified; Z66 Do not resuscitate; I12.9 Hypertensive chronic kidney disease with stage 1 through stage 4 chronic kidney disease, or unspecified chronic kidney disease; E11.22 Type 2 diabetes mellitus with diabetic chronic kidney disease; D63.1 Anemia in chronic kidney disease; G47.33 Obstructive sleep apnea (adult) (pediatric); Z96.611 Presence of right artificial shoulder joint; E78.00 Pure hypercholesterolemia, unspecified; N18.9 Chronic kidney disease, unspecified; I48.91 Unspecified atrial fibrillation; R00.1 Bradycardia, unspecified; M10.9 Gout, unspecified; E86.0 Dehydration; Z96.22 Myringotomy tube(s) status; Z95.0 Presence of cardiac pacemaker; Z79.899 Other long term (current) drug therapy; Z98.890 Other specified postprocedural states; Z79.2 Long term (current) use of antibiotics; Z79.01 Long term (current) use of anticoagulants; Z95.828 Presence of other vascular implants and grafts; Z79.84 Long term (current) use of oral hypoglycemic drugs; Z90.49 Acquired absence of other specified parts of digestive tract; Z88.8 Allergy status to other drugs, medicaments and biological substances
CPT/HCPCS: 36415; 71046; 80053; 81003; 83605; 83735; 83880; 84145; 84484; 85025; 85610; 85730; 86140; 87428; 93010; 96374; 96375; 99285 ×2; J0456; J0696; J7050; 80202; 82947; 83036; 87040; 87070; 87205; 99223; 99233; 99238; A9270-GY; J1642; J1815-GY; J2470; J3490; J7030; J7040

== ENCOUNTER 2024-11-12 05:01 | Emergency (ER) | payer MEDICARE, BC ==
[2024-11-12 06:07] LABS: BASOPHILS PERCENT AUTO 0.7 % (0.0-1.0); EOSINOPHILS PERCENT AUTO 3.0 % (1.0-3.0); LYMPHOCYTES PERCENT AUTO 13.9 % (20.5-50.1); MONOCYTES PERCENT AUTO 10.7 % (2-8); NEUTROPHILS PERCENT AUTO 71.7 % (42.2-75.2); PLATELET COUNT,PLT 204 10^3/uL (150-450); RED BLOOD CELL COUNT 3.88 10^6/uL (4.6-6.2); WHITE BLOOD CELL COUNT,WBC 7.7 10^3/uL (5.0-10.0)
[2024-11-12 06:18] VITALS: BP 145/86; PULSE 63
[2024-11-12 06:29] LABS: B-TYPE NATRIURETIC PEPTIDE,BNP 34.0 pg/ml (0-100)
[2024-11-12 06:30] LABS: LACTIC ACID 1.4 mmol/L (0.4-2.0)
[2024-11-12 06:36] LABS: A/G RATIO 1.4; ALANINE AMINOTRANSFERASE,ALT 24.0 U/L (16-63); ASPARTATE AMNIOTRANSFERASE,AST 15.0 U/L (15-37); BILIRUBIN TOTAL 0.6 mg/dL (0.2-1.0); BLOOD UREA NITROGEN,BUN 21.0 mg/dL (7-18); CARBON DIOXIDE,CO2 25.0 mmol/L (21-32); CHLORIDE,CL 101.0 mmol/L (98-107); CREATININE 1.38 mg/dL (0.70-1.30); EST CRCL DRUG DOSING (CG) 46.86 mL/min; GLUCOSE RANDOM 183.0 mg/dL (70-99); POTASSIUM,K 4.0 mmol/L (3.5-5.1); PROTEIN TOTAL,TP 6.6 g/dL (6.4-8.2); SODIUM,NA 136.0 mmol/L (136-145)
[2024-11-12 06:38] LABS: INR 2.8 (0.9-1.2)
[2024-11-12 06:42] LABS: ESTIMATED GFR 52.0 mL/min (>=60)
== END 2024-11-12 08:00 ==
LOC: DL.ED 05:01
DX: T82.110A Breakdown (mechanical) of cardiac electrode, initial encounter (principal); I10 Essential (primary) hypertension; Z90.49 Acquired absence of other specified parts of digestive tract; Z88.6 Allergy status to analgesic agent; Z88.8 Allergy status to other drugs, medicaments and biological substances; Z79.899 Other long term (current) drug therapy
CPT/HCPCS: 36415; 71045; 80053; 80307; 83605; 83690; 83735; 83880; 84484; 85025; 85610; 93005; 99285